=== PATIENT | female | born 1970 | race Two or more races ===

== ENCOUNTER 2018-04-21 20:23 | Emergency (ER) | payer SELFPAY ==
[~2018-04-21] VITALS: Ht 165.1 cm; Wt 90.7 kg
[2018-04-21 20:50] VITALS: BP 175/82
[2018-04-21] MEDS: NEOMY/BACITR/POLYMYXIN OINT PACKET. TP ONE (21:54)
[2018-04-21] MEDS: DIPHTH,PERTUSS(ACELL),TET TOX 0.5 ML DISP.SYRIN. VAX IM ONE (21:55)
[2018-04-21] MEDS ORDERED: AMOX1TAB61 PO (21:58)
--- NOTE | 2018-04-21 21:58 | PHYS DOC ---
Past Medical History Past Medical History: Anxiety, Depression, Hypothyroid Additional Past Medical Histor: GASTRIC REFLUX Past Surgical History: Hysterectomy Additional Past Surgical Histo: KNEE SURG, Alcohol Use: Occasionally Drug Use: None Adult General Chief Complaint Chief Complaint: ANIMAL BITE HPI HPI Patient is a 47 year old female with history of anxiety, hypothyroidism, who presents today with dog bites to the right forearm. Patient states she was her 2 dogs which were fighting and one of them bit her. Patient states the dogs are up-to-date with their shots. Review of Systems Review of Systems Constitutional: Denies fever or chills [] Musculoskeletal: Denies back pain or joint pain [] Integument: Dog bite to the right forearm Neurologic: Denies headache, focal weakness or sensory changes [] All other systems were reviewed and found to be within normal limits, except as documented in this note. Current Medications Current Medications Current Medications Medications (Trade) Dose Ordered Sig/Oumar Start Time Stop Time Status Last Admin Dose Admin Diphtheria/ Tetanus/Acell Pertussis (Boostrix) 0.5 ml ONCE ONCE 04/21/18 22:00 04/21/18 22:01 Neomycin/ Polymyxin/ Bacitracin (Triple Antibiotic Ointment) 1 pkt 1X ONCE 04/21/18 22:00 04/21/18 22:01 Allergies Allergies Allergies Coded Allergies Type Severity Reaction Last Updated Verified No Known Drug Allergies 04/21/18 No Physical Exam Physical Exam Constitutional: Well developed, well nourished, no acute distress, non-toxic appearance. [] Skin: Warm, dry, right dorsal forearm with a superficial dog bite laceration approximately 2 cm long, lateral right forearm with another laceration approximately 2 cm long. There is no obvious tendon involvement. Patient able to flex and extend the right wrist and elbow with no difficulties. Adequate radial medial and ulnar sensation to the right upper extremity. +2 right radial pulse. Cap refill less than 2 seconds the right fingers. Back: No tenderness, no CVA tenderness. [] Extremities: No tenderness, no cyanosis, no clubbing, ROM intact, no edema. [] Neurologic: Alert and oriented X 3, normal motor function, normal sensory function, no focal deficits noted. [] Psychologic: Affect normal, judgement normal, mood normal. [] Current Patient Data Vital Signs Vital Signs Date Time Temp Pulse Resp B/P (MAP) Pulse Ox O2 Delivery O2 Flow Rate FiO2 04/21/18 20:50 97.9 96 18 175/82 (113) 98 Room Air 97.9 EKG EKG [] Radiology/Procedures Radiology/Procedures [] Course & Med Decision Making Course & Med Decision Making Pertinent Labs and Imaging studies reviewed. (See chart for details) Patient has dog bite to the right forearm. Areas were cleaned, Neosporin applied to the areas. Patient's tetanus was updated. Discharged with a give Augmentin. Follow-up with PCP as needed. Provided return precautions. Dragon Disclaimer Dragon Disclaimer This electronic medical record was generated, in whole or in part, using a voice recognition dictation system. Departure Departure Impression: Primary Impression: Dog bite of right forearm Disposition: HOME, SELF-CARE Condition: STABLE Referrals: IRLANDA MELLO MD (PCP) Follow-up in 1-2 weeks as needed Patient Instructions: Animal Bite Additional Instructions: You have dog bites to the right forearm, you can shower and wash the areas with soap and water, keep them covered if bleeding or draining. Apply Neosporin to the areas twice a day. Complete your oral antibiotics. Monitor the area for any signs of infection including but not limited to increased redness to the area, warmth to the area, yellow drainage from the area and return to the ED if they occur Scripts Amoxicillin/Potassium Clav (AUGMENTIN 875-125 TABLET) 1 Each Tablet 1 TAB PO BID, #20 TAB Prov: ESTEBAN MONTAÑO APRN 04/21/18 Problem Qualifiers Primary Impression: Dog bite of right forearm Encounter type: initial encounter Qualified Codes: S51.851A - Open bite of right forearm, initial encounter; W54.0XXA - Bitten by dog, initial encounter ESTEBAN MONTAÑO APRN Apr 21, 2018 21:58
[2018-04-21] MEDS: HYDROcodone/APAP 5/325MG 1 TAB TABLET PO ONE (22:14)
== END 2018-04-21 22:15 | disposition home or self-care (01) ==
LOC: ER 20:23
DX: S51.851A Open bite of right forearm, initial encounter (principal); S51.811A Laceration without foreign body of right forearm, initial encounter; F41.9 Anxiety disorder, unspecified; F32.9 Major depressive disorder, single episode, unspecified; E03.9 Hypothyroidism, unspecified; K21.9 Gastro-esophageal reflux disease without esophagitis; Z90.710 Acquired absence of both cervix and uterus; W54.0XXA Bitten by dog, initial encounter; Y93.89 Activity, other specified; Y92.89 Other specified places as the place of occurrence of the external cause; Y99.8 Other external cause status
CPT/HCPCS: 90471; 90715; 99283